=== PATIENT | female | born 1990 | race Caucasian/White ===

== ENCOUNTER 2017-08-08 23:35 | Emergency (ER) | payer SELFPAY ==
[~2017-08-08] VITALS: Ht 165.1 cm; Wt 64.0 kg
[2017-08-09] MEDS ORDERED: LIDOCAINE HCL 1% 20ML VIAL (Pyxis) INJ MC ONE (00:45)
[2017-08-09] MEDS ORDERED: LIDOCAINE HCL/PF 1% 10 MG/ML 5ML VIAL IJ NR (00:45)
[2017-08-09] MEDS ORDERED: BACITRACIN ZINC OINT UDPKT TOP ONE (00:45)
[2017-08-09] MEDS ORDERED: MORPHINE SULFATE 4 MG/ML CPJ (NOT FOR IM USE) IV STA (01:17)
[2017-08-09] MEDS ORDERED: ONDANSETRON HCL 4MG/2ML VIAL IV STA (01:17)
[2017-08-09 01:25] LABS: HCG SCREEN NEGATIVE
[2017-08-09 03:53] VITALS: BP 103/63
== END 2017-08-09 03:55 | disposition home or self-care (01) ==
LOC: ER 23:35
DX: S02.2XXA Fracture of nasal bones, initial encounter for closed fracture (principal); J32.9 Chronic sinusitis, unspecified; Y09 Assault by unspecified means
CPT/HCPCS: 70486; 84703; 96374; 96375; 99285; J2270; J2405; J3490